=== PATIENT | female | born 1970 | race Caucasian/White ===

== ENCOUNTER 2021-11-10 13:08 | Inpatient (IN) | payer BC ==
[2021-11-10] MEDS ORDERED: Ketorolac Tromethamine 30 MG/ML VIAL ONE (13:54)
[2021-11-10 13:56] LABS: #Basophils 0.1 10x3/uL (0.0-0.2); #Eosinphils 0.2 10x3/uL (0.0-0.5); #Monocytes 0.6 10x3/uL (0.0-1.1); %Eosinophils 2.8 % (0.0-6.0); %Lymphocytes 24.9 % (18.0-47.0); %Monocytes 7.6 % (0.0-10.0); %Neutrophils 63.4 % (40.0-75.0); Hemoglobin 16.2 g/dL (12.0-15.5); Mean Corpuscular Hemoglobin 27.7 pg (27.0-33.0); Mean Corpuscular Volume 81.5 fl (81.6-98.3); Mean Platelet Volume 9.7 fl (7.4-10.4); Platelet Count 241 10x3/uL (150-450); RBC Distribution Width 13.9 % (11.5-14.5); Red Blood Cell (RBC) Count 5.84 10x6/uL (3.90-5.03); White Blood Cell (WBC) Count 7.9 10x3/uL (3.5-10.5)
[2021-11-10 14:09] LABS: ALT (SGPT) 13 U/L (8-55); AST (SGOT) 17 U/L (5-34); Albumin 4.5 g/dL (3.5-5.0); Alkaline Phosphatase 102 U/L (40-110); Anion Gap 13 mmol/L (10-20); BUN (Urea Nitrogen) 12 mg/dL (9.8-20.1); Bilirubin, Total 0.9 mg/dL (0.2-1.2); Calc. Creatinine Clearance 0 mL/min (70-130); Calcium 9.9 mg/dL (7.8-10.44); Carbon Dioxide 27 mmol/L (22-29); Chloride 103 mmol/L (98-107); Estimated GFR 102; Globulin 3.5 g/dL (2.4-3.5); Glucose 96 mg/dL (70-105); Potassium 4.2 mmol/L (3.5-5.1); Sodium 139 mmol/L (136-145)
[2021-11-10 15:05] LABS: Bilirubin Neg (Negative); Blood, Urine 25 (Negative); Clarity Clear (Clear); Glucose, Urine (Dipstick) Normal (Negative); Ketone, Urine Negative (Negative); Leukocyte Negative (Negative); Nitrite Negative (Negative); Protein, Urine (Dipstick) Negative (Neg-Trace); Specific Gravity, Urine 1.005 (1.002-1.036); Urobilinogen Normal mg/dL (Less than 2)
[2021-11-10 15:15] LABS: Bacteria/HPF Rare-Few HPF (None Seen); Squamous Epithelial 0-3 HPF (0-3); WBC/HPF 0-3 HPF (0-3)
[2021-11-10] MEDS ORDERED: Lorazepam 2 MG/ML VIAL SLOW IVP SCH (16:00)
[2021-11-10] MEDS ORDERED: Iopamidol 300 61% 100 ML VIAL FS ONE (16:06)
[2021-11-10] MEDS ORDERED: Acetaminophen 325 MG TAB PO PRN (16:27)
[2021-11-10] MEDS ORDERED: Morphine 4 MG/ML VIAL ONE (17:41)
[2021-11-10] MEDS ORDERED: Enoxaparin Sodium 60 MG/0.6 ML SYRINGE SC SCH (21:00)
[2021-11-10] MEDS: Famotidine 20 MG TAB PO SCH (21:14)
[2021-11-10] MEDS: Nicotine 14 MG PATCH TD SCH (21:14)
[2021-11-10] MEDS: HYDROcodone/Acetaminophen 5/325 mg Tablet PO PRN (21:14)
[2021-11-10] MEDS: Metoprolol Tartrate 50 MG TAB PO SCH (21:21)
[2021-11-11 03:16] VITALS: BMI 20.5
[2021-11-11 04:36] LABS: #Basophils 0.1 10x3/uL (0.0-0.2); #Eosinphils 0.3 10x3/uL (0.0-0.5); #Monocytes 0.6 10x3/uL (0.0-1.1); #Neutrophils 3.1 10x3/uL (1.5-8.4); %Basophils 0.9 % (0.0-2.0); %Eosinophils 4.2 % (0.0-6.0); %Lymphocytes 37.7 % (18.0-47.0); %Monocytes 8.7 % (0.0-10.0); %Neutrophils 48.2 % (40.0-75.0); Hemoglobin 14.5 g/dL (12.0-15.5); Mean Corpuscular HGB CONC 33.5 g/dL (32.0-36.0); Mean Corpuscular Hemoglobin 27.8 pg (27.0-33.0); Mean Corpuscular Volume 83.1 fl (81.6-98.3); Mean Platelet Volume 9.8 fl (7.4-10.4); Platelet Count 201 10x3/uL (150-450); RBC Distribution Width 13.9 % (11.5-14.5); Red Blood Cell (RBC) Count 5.21 10x6/uL (3.90-5.03); White Blood Cell (WBC) Count 6.5 10x3/uL (3.5-10.5)
[2021-11-11 04:45] LABS: ALT (SGPT) 11 U/L (8-55); AST (SGOT) 14 U/L (5-34); Albumin 3.7 g/dL (3.5-5.0); Alkaline Phosphatase 82 U/L (40-110); Anion Gap 11 mmol/L (10-20); BUN (Urea Nitrogen) 17 mg/dL (9.8-20.1); Bilirubin, Total 0.3 mg/dL (0.2-1.2); Calc. Creatinine Clearance 81 mL/min (70-130); Calcium 9.3 mg/dL (7.8-10.44); Carbon Dioxide 29 mmol/L (22-29); Chloride 103 mmol/L (98-107); Estimated GFR 97; Globulin 2.7 g/dL (2.4-3.5); Glucose 91 mg/dL (70-105); Potassium 4.5 mmol/L (3.5-5.1); Protein, Total 6.4 g/dL (6.0-8.3); Sodium 138 mmol/L (136-145)
[2021-11-11] MEDS: Aspirin Chewable 81 MG TAB PO SCH (09:25)
[2021-11-11] MEDS: Losartan Potassium 50 MG TAB PO SCH (09:26)
[2021-11-11] MEDS: Citalopram 20 MG TAB PO SCH (09:26)
[2021-11-11] MEDS: Famotidine 20 MG TAB PO SCH ×2 (09:26→19:40)
[2021-11-11] MEDS: Metoprolol Tartrate 50 MG TAB PO SCH ×2 (09:26→19:40)
[2021-11-11] MEDS: Lidocaine 5% Patch TD SCH (10:33)
[2021-11-11] MEDS: HYDROcodone/Acetaminophen 5/325 mg Tablet PO PRN ×2 (10:33→19:38)
[2021-11-11] MEDS ORDERED: Apixaban 5 MG TAB PO SCH (11:00)
[2021-11-11] MEDS: Nicotine 14 MG PATCH TD SCH (17:55)
[2021-11-11] MEDS: Apixaban 5 MG TAB PO SCH (19:39)
[2021-11-11] MEDS: hydrALAZINE 20 MG/ML VIAL SLOW IVP PRN (21:20)
[2021-11-11] MEDS: Transdermal Patch Removal TOP SCH (21:24)
[2021-11-12] MEDS: Apixaban 5 MG TAB PO SCH ×2 (07:58→20:53)
[2021-11-12] MEDS: Amlodipine 5 MG TAB PO SCH (07:59)
[2021-11-12] MEDS: Famotidine 20 MG TAB PO SCH ×2 (07:59→20:53)
[2021-11-12] MEDS: Aspirin Chewable 81 MG TAB PO SCH (07:59)
[2021-11-12] MEDS: Citalopram 20 MG TAB PO SCH (07:59)
[2021-11-12] MEDS: Losartan Potassium 50 MG TAB PO SCH (08:00)
[2021-11-12] MEDS: Lidocaine 5% Patch TD SCH (08:00)
[2021-11-12] MEDS: Metoprolol Tartrate 50 MG TAB PO SCH ×2 (08:00→20:53)
[2021-11-12] MEDS: HYDROcodone/Acetaminophen 5/325 mg Tablet PO PRN ×2 (08:01→11:45)
[2021-11-12] MEDS: hydrALAZINE 20 MG/ML VIAL SLOW IVP PRN (08:06)
[2021-11-12] MEDS ORDERED: Ondansetron PF 4 MG/2 ML Vial IVP PRN (10:45)
[2021-11-12] MEDS ORDERED: hydrALAZINE 25 MG TAB PO SCH (11:00)
[2021-11-12] MEDS: Nicotine 14 MG PATCH TD SCH (14:43)
[2021-11-12] MEDS: hydrALAZINE 25 MG TAB PO SCH ×2 (14:49→21:21)
[2021-11-12] MEDS ORDERED: Morphine 2 MG/ML VIAL SLOW IVP PRN (15:47)
[2021-11-12 15:57] LABS: Lactic Acid 0.7 mmol/L (0.5-2.2)
[2021-11-12] MEDS ORDERED: Hydrochlorothiazide 25 MG TAB PO SCH (16:00)
[2021-11-12] MEDS ORDERED: Iopamidol 370 76% 100 ML VIAL ONE (16:13)
[2021-11-12] MEDS ORDERED: cloNIDine 0.1 MG TAB PO SCH (21:00)
[2021-11-12] MEDS: Transdermal Patch Removal TOP SCH (21:21)
[2021-11-12 22:44] LABS: SARS-CoV-2 NAA Rapid Test DETECTED (NotDetected)
[2021-11-13] MEDS ORDERED: Hydrochlorothiazide 25 MG TAB PO SCH (09:00)
[2021-11-13] MEDS: Aspirin Chewable 81 MG TAB PO SCH (09:48)
[2021-11-13] MEDS: Losartan Potassium 50 MG TAB PO SCH (09:49)
[2021-11-13] MEDS: Famotidine 20 MG TAB PO SCH (09:49)
[2021-11-13] MEDS: Metoprolol Tartrate 50 MG TAB PO SCH (09:50)
[2021-11-13] MEDS: Citalopram 20 MG TAB PO SCH (09:50)
[2021-11-13] MEDS: Amlodipine 5 MG TAB PO SCH (09:51)
[2021-11-13] MEDS: Apixaban 5 MG TAB PO SCH (09:51)
[2021-11-13] MEDS: hydrALAZINE 25 MG TAB PO SCH (09:52)
[2021-11-13] MEDS: Lidocaine 5% Patch TD SCH (09:53)
[2021-11-13 11:25] VITALS: TEMP 97.9
[2021-11-13 11:26] VITALS: BP 132/62
[2021-11-18] MEDS ORDERED: Apixaban 5 MG TAB PO SCH (09:00)
== END 2021-11-13 11:45 | disposition home or self-care (01) | DRG 441 ==
LOC: CSHERS 13:08 → CSHTELE 21:00 → OBSVTOIN 11-12 14:40
PROVIDERS: ADMIT Family Medicine; ATTEND Internal Medicine
DX: I81 Portal vein thrombosis (principal); K55.059 Acute (reversible) ischemia of intestine, part and extent unspecified; U07.1 COVID-19; I67.4 Hypertensive encephalopathy; F17.210 Nicotine dependence, cigarettes, uncomplicated; F10.10 Alcohol abuse, uncomplicated; I16.0 Hypertensive urgency; G43.909 Migraine, unspecified, not intractable, without status migrainosus; Z85.3 Personal history of malignant neoplasm of breast; Z88.0 Allergy status to penicillin; Z91.040 Latex allergy status; Z79.82 Long term (current) use of aspirin; Z79.899 Other long term (current) drug therapy; Z98.51 Tubal ligation status
CPT/HCPCS: 36415; 74174; 74177; 80053; 81003; 81015; 83605; 85025; 93005; 93010; 93306; 96372; 96374; 96375; G0378; J0360; J1650; J1885; J2060; J2270; J2405; Q9967; U0002

== ENCOUNTER 2024-03-07 14:08 | Emergency (ER) | payer BC ==
[2024-03-07] MEDS ORDERED: Nitroglycerin 2% Ointment 1 INCH/1 GM Packet ONE (15:03)
[2024-03-07] MEDS ORDERED: Acetaminophen 500 MG TAB ONE (15:03)
[2024-03-07 15:34] LABS: #Basophils 0.06 10x3/uL (0.0-0.2); #Eosinophils 0.04 10x3/uL (0.0-0.5); #Monocytes 0.55 10x3/uL (0.0-1.1); #Neutrophils 5.06 10x3/uL (1.5-8.4); %Basophils 0.8 % (0.0-2.0); %Eosinophils 0.6 % (0.0-6.0); %Lymphocytes 20.9 % (18.0-47.0); %Monocytes 7.6 % (0.0-10.0); Hematocrit 49.9 % (34.9-44.5); Hemoglobin 16.8 g/dL (12.0-15.5); Mean Corpuscular HGB CONC 33.7 g/dL (32.0-36.0); Mean Corpuscular Hemoglobin 30.1 pg (27.0-33.0); Mean Corpuscular Volume 89.3 fL (81.6-98.3); Platelet Count 266 10x3/uL (150-450); RBC Distribution Width 13.4 % (11.5-14.5); Red Blood Cell (RBC) Count 5.59 10x6/uL (3.90-5.03); White Blood Cell (WBC) Count 7.2 10x3/uL (3.5-10.5)
[2024-03-07 15:49] LABS: ALT (SGPT) 21 U/L (8-55); AST (SGOT) 22 U/L (5-34); Albumin 4.3 g/dL (3.5-5.0); Alkaline Phosphatase 90 U/L (40-110); Anion Gap 16 mmol/L (10-20); BUN (Urea Nitrogen) 16 mg/dL (9.8-20.1); Bilirubin, Total 0.8 mg/dL (0.2-1.2); Calc. Creatinine Clearance 0 mL/min (70-130); Calcium 9.6 mg/dL (7.8-10.44); Carbon Dioxide 20 mmol/L (22-29); Chloride 107 mmol/L (98-107); Estimated GFR 97; Globulin 3.2 g/dL (2.4-3.5); Glucose 88 mg/dL (70-105); Magnesium 2.1 mg/dL (1.6-2.6); Potassium 4.2 mmol/L (3.5-5.1); Protein, Total 7.5 g/dL (6.0-8.3); Sodium 139 mmol/L (136-145)
[2024-03-07 15:55] LABS: Troponin I Less than 0.010 ng/mL (< 0.028)
[2024-03-07] MEDS ORDERED: Ketorolac Tromethamine 30 MG (1 mL) VIAL ONE (16:59)
== END 2024-03-07 18:35 | disposition short-term general hospital (02) ==
LOC: CSHERS 14:08
DX: I10 Essential (primary) hypertension (principal); R07.89 Other chest pain; F17.210 Nicotine dependence, cigarettes, uncomplicated; Z79.899 Other long term (current) drug therapy
CPT/HCPCS: 71045; 80053; 83735; 83880; 84484; 85025; 96374; J1885

== ENCOUNTER 2024-11-10 10:17 | Emergency (ER) | payer BC ==
[2024-11-10] MEDS ORDERED: Dexamethasone 10 MG/ML VIAL ONE (10:35)
[2024-11-10] MEDS ORDERED: Albuterol 2.5 MG (3 mL) NEB ONE (11:53)
== END 2024-11-10 13:20 | disposition home or self-care (01) ==
LOC: CSHERS 10:17
DX: J44.1 Chronic obstructive pulmonary disease with (acute) exacerbation (principal); I10 Essential (primary) hypertension; F17.210 Nicotine dependence, cigarettes, uncomplicated; Z79.01 Long term (current) use of anticoagulants
CPT/HCPCS: 71045; 93005; 94640; J1100; J7611; J7620